=== PATIENT | male | born 1945 | race Caucasian/White ===

== ENCOUNTER 2016-08-15 00:47 | Emergency (ER) | payer MEDICARE, OTHER ==
[~2016-08-15 00:47] MED LIST: ASPIRIN81 M2 PO; BENADRYL PO; CARDURA4 M1 PO; CARDURA8 MG PO; CELEBREX PO; GLUCOPHAGE500 MG PO; KLOR-CON PO; LASIX20 MG PO; LIPITOR80 MG PO; LISINOPRIL20 MG PO; LOW DOSE ASPIRI81 M1 PO; MULTI VITAMIN1 EACH PO; MULTIVITAMIN PO; NORCO 5/325 PO; NORVASC PO; OMEPRAZOLE20 M2 PO; PLAVIX PO; PRILOSEC20 MG PO; TENORMIN50 MG PO; TOPROL XL 50 MG50 MG PO; VITAMIN B-6 PO; VITAMIN B6 PO; VITAMIN D PO; VITAMIN D1000 UNI1 PO; ZESTRIL40 MG PO; ZOCOR20 MG PO
== END 2016-08-15 04:39 | disposition home or self-care (01) ==
LOC: SED 00:47
DX: E11.649 Type 2 diabetes mellitus with hypoglycemia without coma (principal); K21.9 Gastro-esophageal reflux disease without esophagitis; I10 Essential (primary) hypertension; R11.0 Nausea; M19.90 Unspecified osteoarthritis, unspecified site; Z95.1 Presence of aortocoronary bypass graft; Z98.890 Other specified postprocedural states; Z79.899 Other long term (current) drug therapy; Z79.4 Long term (current) use of insulin; Z79.82 Long term (current) use of aspirin
CPT/HCPCS: 36415; 82947; 96374; 96375; 99283; 99284; J2405; J2765